=== PATIENT | male | born 1975 | race Caucasian/White ===

== ENCOUNTER 2024-11-22 21:49 | Emergency (ER) | payer MEDICAID ==
[~2024-11-22] VITALS: Ht 177.8 cm; Wt 100.0 kg
[~2024-11-22 21:49] MED LIST: NO HOME MEDS; SULF1TAB45 PO
[2024-11-22] MEDS: amLODIPine 5mg tablet PO ONE (22:31)
[2024-11-22] MEDS: losartan 50mg tablet PO ONE (22:31)
[2024-11-22 22:33] VITALS: BP 183/124; PULSE 86; RESP 15; TEMP 99.3; O2SAT 96
== END 2024-11-22 22:36 ==
LOC: ER 21:50
DX: I10 Essential (primary) hypertension (principal); E11.9 Type 2 diabetes mellitus without complications; J45.909 Unspecified asthma, uncomplicated; J44.9 Chronic obstructive pulmonary disease, unspecified; Z72.89 Other problems related to lifestyle
CPT/HCPCS: 93005; 99283

== ENCOUNTER → 2024-11-23 | Emergency (ER) | payer MEDICAID ==
[2024-11-23 11:41] VITALS: BP 167/116; PULSE 88; RESP 16; TEMP 98.1; O2SAT 97
== END | disposition left against medical advice (07) ==
LOC: ER 11:26
DX: I10 Essential (primary) hypertension (principal); E11.9 Type 2 diabetes mellitus without complications; J45.909 Unspecified asthma, uncomplicated; J44.9 Chronic obstructive pulmonary disease, unspecified; Z72.89 Other problems related to lifestyle
CPT/HCPCS: 99284